=== PATIENT | male | born 1945 | race Caucasian/White ===

== ENCOUNTER → 2017-02-03 | Outpatient (CLI) | payer OTHER ==
--- NOTE | 2017-02-03 12:35 | KCIC ---
RIGHT RIB SERIES Clinical Indication: Right rib pain x1 month. No known injury. Comparison: None. Findings: There are left chest dual-chamber cardiac ICD leads. Cardiac size normal. Visualized lungs are clear. There is degenerative endplate spurring in the thoracolumbar spine. There is no acute displaced rib fracture. A nondisplaced or subtle rib fracture could be obscured. IMPRESSION: No acute displaced rib fracture. Electronically signed by: Mahesh Ordoñez MD (02/03/2017 12:32 PM) [id number]
== END | disposition home or self-care (01) ==
LOC: KCIC 12:03
PROVIDERS: ATTEND Family Medicine
DX: R07.81 Pleurodynia (principal)
CPT/HCPCS: 71100